=== PATIENT | female | born 1995 | race Caucasian/White ===

== ENCOUNTER 2023-11-18 00:35 | Emergency (ER) | payer OTHER, SELFPAY ==
[2023-11-18 00:40] VITALS: BP 147/100; PULSE 121; TEMP 36.9; O2SAT 100; BMI 18.1
--- NOTE | 2023-11-18 00:51 | ED_ITS ---
HPI HPI - General Adult General Chief complaint: Wound/Laceration Stated complaint: LEFT ARM WOUND RECHECK Time Seen by Provider: 11/18/23 00:40 Source: patient Mode of arrival: walk-in Limitations: no limitations History of Present Illness HPI narrative: 28-year-old female to the emergency department chief complaint of chronic wound to her right upper extremity. She reports this wound has been there for over a year. [facility] and upon exposure of the wound was informed that she needed medical clearance from an ER before she could be admitted there. Patient has no complaints at this time. She reports that the wound is the best it has looked in a long time. She denies any fever, sweats, chills. She has no other concerns. She did not intend to seek medical care tonight. Related Data Allergies Allergy/AdvReac Type Severity Reaction Status Date / Time No Known Drug Allergies Allergy Verified 11/18/23 00:46 Opioid HPI Opioid Management Most Recent Opioid Data: No Data to Display Review of Systems ROS Status of ROS 10 or more systems reviewed and unremark able except as noted in history and below Exam Narrative Exam Narrative: VITALS: I have reviewed the triage vital signs. GENERAL: Well developed, well appearing adult in no acute distress. NEURO: Alert and oriented. Moves all extremities. Face is symmetric and expressive. EYES: PERRL. No scleral icterus or conjunctival injection. No discharge. HENT: Normocephalic, atraumatic. Hearing is grossly intact. Nares grossly patent and without discharge. Mucous membranes moist. NECK: No JVD. Patient moves neck without restriction. Right upper extremity: Lymphedema about the hand. Radial pulse intact. Cap refill intact. Sensation is intact. No follow odor. Trace serosanguineous discharge. no erythema or warmth. There is chronic granulation tissue about the forearm. There is scar tissue surrounding the chronic wound. SKIN: Warm and dry. Normal turgor. No rash or lesions appreciated. PSYCH: Mood, affect, and interaction is appropriate to the setting. Constitutional Vital Signs, click to edit/add: Last Vital Signs Temp 98.5 F 11/18/23 00:40 Pulse 121 H 11/18/23 00:40 Resp 16 11/18/23 00:40 BP 147/100 H 11/18/23 00:40 Pulse Ox 100 11/18/23 00:40 O2 Del Method Room Air 11/18/23 00:40 Course Vital Signs Vital signs: Vital Signs Temperature 98.5 F 11/18/23 00:40 Pulse Rate 121 H 11/18/23 00:40 Respiratory Rate 16 11/18/23 00:40 Blood Pressure 147/100 H 11/18/23 00:40 Pulse Oximetry 100 11/18/23 00:40 Oxygen Delivery Method Room Air 11/18/23 00:40 Temperature 98.5 F 11/18/23 00:40 Pulse Rate 121 H 11/18/23 00:40 Respiratory Rate 16 11/18/23 00:40 Blood Pressure 147/100 H 11/18/23 00:40 Pulse Oximetry 100 11/18/23 00:40 Oxygen Delivery Method Room Air 11/18/23 00:40 Medical Decision Making MDM Narrative Medical decision making narrative: 28-year-old female to the emergency department from [facility] for evaluation of a wound on her right arm. Vital stable, the patient is afebrile. She does have chronic sinus tachycardia. Patient is well-known to me from another facility at work at. Her limb is neurovascularly intact. She does have impressive lymphedema about the hand. She has a chronic wound without any active signs of infection. The wound is the best it has looked in any time that I have evaluated this patient. I did review the recent notes from the [facility] wound care center. She was last seen on 10/29/2023. Her wound appears improved even from that time per Dr. Blair's description. I discussed with the patient. She has no concerns at this time. She plans to follow-up with the wound care center at [facility] on 11/22 as planned. She is currently awaiting consultation with plastic surgery for scar release treatment and possible skin grafting if she gets a good response. Christy RN did call to discuss with me. I discussed with her the wound care recommendations made by Dr. Blair in his last consultation. Return precautions were discussed. All questions were answered. The patient was discharged home Medical Records Medical records reviewed: Yes I reviewed the patient's medical records Discharge Plan Discharge Stand Alone Forms: Portal Instructions Chief Complaint: Wound/Laceration Clinical Impression: Chronic wound Patient Disposition: Home, Self-Care Time of Disposition Decision: 00:44 Condition: Good Mode of Transportation: Private Vehicle Print Language: [place] Instructions: Chronic Wounds (ED) Additional Instructions: Keep upcoming appointment with Dr. Blair for your chronic wound on 11/23/23 at 9:00AM at [facility]. Dressing change every other day. Non- adherent dressing with ABD pad then kerlix.
--- NOTE | 2023-11-18 00:58 | PC.NURSE ---
Patient is IV drug user, known to Dr. Ye. Patient is sent to ED from [facility]. They called report and said that they were unable to even complete their admission of this patient due to her right arm wound, they put a dressing on it and sent her here for evaluation and medical clearance. Dr. Ye evaluated the wound, states that it looks the best it has looked in a long time and a dressing of Vaseline gauze, ABD and Coban re-applied to wound. Patient is [id number] back to [facility].
[2023-11-18 01:06] VITALS: BP 144/90
== END 2023-11-18 01:05 | disposition home or self-care (01) ==
PROVIDERS: Emergency Provider Student in an Organized Health Care Education/Training Program
DX: S41.101A Unspecified open wound of right upper arm, initial encounter (principal)
CPT/HCPCS: 99282